=== PATIENT | female | born 1960 | race Caucasian/White ===

== ENCOUNTER 2020-03-08 22:37 | Inpatient (IN) ==
[2020-03-08] MEDS ORDERED: methylPREDNISolone SOD SUC 125 MG/2 ML VIAL IV STA (23:16)
[2020-03-08] MEDS ORDERED: SODIUM CHLORIDE 0.9% 1,000 ML IV STA (23:16)
[2020-03-08 23:36] LABS: Basophils # 0.1 10*3/uL (0.0-0.2); Basophils % 0.4 % (0.0-0.8); Eosinophils # 0.4 10*3/uL (0.0-0.87); Eosinophils % 2.4 % (0.00-10.9); Hematocrit 42.7 VOL% (35.7-47.0); Hemoglobin 13.8 GM/DL (12.0-16.0); Immature Granulocytes % 0.4 %; Immature Granulocytes Absolute 0.06 #; Lymphocytes # 1.4 10*3/uL (1.4-4.0); Mean Corpuscular HGB Conc 32.3 GM/DL (32-36); Mean Corpuscular Volume 99.3 FL (87-102); Mean Platelet Volume 11.1 FL (9.6-12.0); Monocytes % 6.7 % (1.7-12.7); Neutrophils % 81.1 % (38.7-73.9); Platelet Count 293 T/CUMM (130-400); Red Cell Distribution Width 11.8 % (9.3-17.3); White Blood Count 15.3 T/CUMM (4-12)
[2020-03-08 23:42] LABS: Albumin 3.9 G/DL (3.4-5.0); Bilirubin,Total 0.4 MG/DL (0.2-1.0); Calcium 9.2 MG/DL (8.5-10.1); Osmolality,Calculated 270.1 MOS/KG (273-304); Total Protein 7.7 G/DL (6.4-8.3)
[2020-03-08] MEDS ORDERED: AZITHROMYCIN INJ 500 MG in SODIUM CHLORIDE 0.9% 250 ML IV STA (23:57)
[2020-03-09] MEDS ORDERED: ASPIRIN EC 325 MG TABLET PO STA (00:09)
[2020-03-09 00:20] LABS: Ferritin 131.9 ng/ml (8-252)
[2020-03-09] MEDS ORDERED: ONDANSETRON 4 MG/2 ML VIAL IV PRN (00:35)
[2020-03-09] MEDS: SODIUM CHLORIDE 0.9% 1,000 ML IV SCH ×3 (02:10→18:47)
[2020-03-09 03:14] LABS: Basophils % 0.3 % (0.0-0.8); Eosinophils # 0.1 10*3/uL (0.0-0.87); Eosinophils % 0.5 % (0.00-10.9); Hematocrit 41.1 VOL% (35.7-47.0); Hemoglobin 13.7 GM/DL (12.0-16.0); Immature Granulocytes % 0.4 %; Immature Granulocytes Absolute 0.04 #; Lymphocytes # 0.4 10*3/uL (1.4-4.0); Lymphocytes % 3.7 % (21.3-54.2); Mean Corpuscular HGB Conc 33.3 GM/DL (32-36); Mean Corpuscular Volume 95.8 FL (87-102); Mean Platelet Volume 11.1 FL (9.6-12.0); Neutrophils % 94.1 % (38.7-73.9); Platelet Count 273 T/CUMM (130-400); Red Blood Count 4.29 MC/CUMM (3.8-5.5); Red Cell Distribution Width 11.9 % (9.3-17.3); White Blood Count 11.4 T/CUMM (4-12)
[2020-03-09 03:43] LABS: Alanine Aminotransferase 26 U/L (13-56); Albumin 3.9 G/DL (3.4-5.0); Alkaline Phosphatase 90 U/L (45-117); Aspartate Amino Transferase 24 U/L (0-37); Bilirubin,Total < 0.39 MG/DL (0.2-1.0); Blood Urea Nitrogen 9 MG/DL (7-18); Calcium 8.6 MG/DL (8.5-10.1); Estimated Glom Filtration Rate 76 ML/MIN; Glucose 128 MG/DL (74-106); Osmolality,Calculated 281.3 MOS/KG (273-304); Total Protein 7.3 G/DL (6.4-8.3)
[2020-03-09 04:03] LABS: Lymphocytes 4 % (20-55); Segmented Neutrophils 95 % (50-85); Total Cells Counted 100
[2020-03-09 04:04] LABS: Platelet Estimate Normal
[2020-03-09 04:05] LABS: Stomatocytes Slight
[2020-03-09] MEDS ORDERED: ACETAMINOPHEN 325 MG TABLET PO PRN (07:41)
[2020-03-09] MEDS ORDERED: NITROGLYCERIN SL 0.4 MG TABLET SL PRN (07:41)
[2020-03-09] MEDS ORDERED: methylPREDNISolone SOD SUC 40 MG/1 ML VIAL IV SCH (08:00)
[2020-03-09] MEDS: ENOXAPARIN 60 MG/0.6 ML SYRINGE SUBCUT SCH ×2 (08:47→21:30)
[2020-03-09] MEDS: PANTOPRAZOLE 40 MG TABLET PO SCH (08:48)
[2020-03-09] MEDS: ASPIRIN EC 81 MG TABLET PO SCH (08:48)
[2020-03-09] MEDS ORDERED: ALBUTEROL/IPRATROPIUM 3 ML NEB RESP TX PRN (08:52)
[2020-03-09] MEDS ORDERED: ALBUTEROL 2.5 MG/3 ML NEB RESP TX SCH (11:00)
[2020-03-09] MEDS ORDERED: ALBUTEROL INHALER 18 GM INH SCH (11:00)
[2020-03-09] MEDS ORDERED: MORPHINE 4 MG/1 ML VIAL IV PRN (11:17)
[2020-03-09] MEDS ORDERED: ALBUTEROL/IPRATROPIUM 3 ML NEB RESP TX SCH ×2 (15:00→19:00)
[2020-03-09] MEDS: ALBUTEROL INHALER 18 GM INH SCH ×2 (15:18→19:00)
[2020-03-09] MEDS: cefTRIAXone 1,000 MG in SYRINGE 1 EACH IV SCH (15:18)
[2020-03-09] MEDS: methylPREDNISolone SOD SUC 40 MG/1 ML VIAL IV SCH (17:05)
[2020-03-09 19:26] LABS: Apearance,Urine CLEAR (Clear); Bilirubin,Urine Negative (Negative); Blood, Urine Negative (Negative); Glucose,Urine (UA) 50 mg/dL (Negative); Ketones,Urine Negative (Negative); Mucus,Urine Occasional /LPF (Occasional); Nitrite,Urine Negative (Negative); Protein,Urine Negative; RBC,Urine <1 /HPF (0-4); Urine Color Yellow (Yellow); Urine Specific Gravity 1.015 (1.001-1.035); Urine Urobilinogen < 2.0 EU/DL (0.2-1.0); WBC,Urine <1 /HPF (0-6)
[2020-03-09] MEDS: ATORVASTATIN 20 MG TABLET PO SCH (21:30)
[2020-03-10] MEDS ORDERED: AZITHROMYCIN INJ 500 MG in SODIUM CHLORIDE 0.9% 250 ML IV SCH
[2020-03-10] MEDS: methylPREDNISolone SOD SUC 40 MG/1 ML VIAL IV SCH ×3 (00:50→16:52)
[2020-03-10] MEDS: ALBUTEROL INHALER 18 GM INH SCH ×4 (01:15→21:54)
[2020-03-10] MEDS: SODIUM CHLORIDE 0.9% 1,000 ML IV SCH ×3 (03:25→23:23)
[2020-03-10 05:59] LABS: Basophils % 0.1 % (0.0-0.8); Hematocrit 35.5 VOL% (35.7-47.0); Hemoglobin 11.8 GM/DL (12.0-16.0); Immature Granulocytes % 0.5 %; Immature Granulocytes Absolute 0.05 #; Lymphocytes # 0.7 10*3/uL (1.4-4.0); Lymphocytes % 6.8 % (21.3-54.2); Mean Corpuscular HGB Conc 33.2 GM/DL (32-36); Mean Corpuscular Volume 96.5 FL (87-102); Mean Platelet Volume 11.2 FL (9.6-12.0); Monocytes % 3.7 % (1.7-12.7); Neutrophils % 88.9 % (38.7-73.9); Platelet Count 257 T/CUMM (130-400); Red Blood Count 3.68 MC/CUMM (3.8-5.5); Red Cell Distribution Width 11.8 % (9.3-17.3); White Blood Count 10.8 T/CUMM (4-12)
[2020-03-10 06:31] LABS: Alanine Aminotransferase 22 U/L (13-56); Alkaline Phosphatase 69 U/L (45-117); Aspartate Amino Transferase 20 U/L (0-37); Bilirubin,Total < 0.39 MG/DL (0.2-1.0); Blood Urea Nitrogen 9 MG/DL (7-18); Calcium 8.7 MG/DL (8.5-10.1); Estimated Glom Filtration Rate 94 ML/MIN; Glucose 127 MG/DL (74-106); HDL Cholesterol 80 MG/DL (40-60); Osmolality,Calculated 275.7 MOS/KG (273-304); Risk Ratio 2.14; Total Protein 6.3 G/DL (6.4-8.3); Triglycerides 91 MG/DL (2-150); VLDL CHOLESTEROL 18.2 MG/DL
[2020-03-10] MEDS: AZITHROMYCIN 250 MG TABLET PO SCH (09:01)
[2020-03-10] MEDS: PANTOPRAZOLE 40 MG TABLET PO SCH (09:01)
[2020-03-10] MEDS: ENOXAPARIN 60 MG/0.6 ML SYRINGE SUBCUT SCH ×2 (09:01→21:54)
[2020-03-10] MEDS: ASPIRIN EC 81 MG TABLET PO SCH (09:03)
[2020-03-10] MEDS: cefTRIAXone 1,000 MG in SYRINGE 1 EACH IV SCH (13:17)
[2020-03-10] MEDS ORDERED: CLORAZEPATE 7.5 MG TABLET PO ONE (16:14)
[2020-03-10] MEDS: ATORVASTATIN 20 MG TABLET PO SCH (21:54)
[2020-03-11] MEDS: methylPREDNISolone SOD SUC 40 MG/1 ML VIAL IV SCH ×3 (00:18→15:43)
[2020-03-11] MEDS: ALBUTEROL INHALER 18 GM INH SCH ×4 (01:40→18:00)
[2020-03-11] MEDS: SODIUM CHLORIDE 0.9% 1,000 ML IV SCH ×3 (02:20→22:02)
[2020-03-11 06:06] LABS: Basophils % 0.1 % (0.0-0.8); Hematocrit 35.2 VOL% (35.7-47.0); Hemoglobin 11.3 GM/DL (12.0-16.0); Immature Granulocytes % 0.5 %; Immature Granulocytes Absolute 0.05 #; Lymphocytes # 1.5 10*3/uL (1.4-4.0); Lymphocytes % 15.6 % (21.3-54.2); Mean Corpuscular HGB Conc 32.1 GM/DL (32-36); Mean Corpuscular Volume 99.4 FL (87-102); Mean Platelet Volume 11.6 FL (9.6-12.0); Monocytes % 5.7 % (1.7-12.7); Neutrophils % 78.1 % (38.7-73.9); Platelet Count 260 T/CUMM (130-400); Red Blood Count 3.54 MC/CUMM (3.8-5.5); Red Cell Distribution Width 11.8 % (9.3-17.3); White Blood Count 9.8 T/CUMM (4-12)
[2020-03-11] MEDS: PANTOPRAZOLE 40 MG TABLET PO SCH (08:16)
[2020-03-11] MEDS: AZITHROMYCIN 250 MG TABLET PO SCH (08:16)
[2020-03-11] MEDS: ENOXAPARIN 60 MG/0.6 ML SYRINGE SUBCUT SCH ×2 (08:16→21:35)
[2020-03-11] MEDS: ASPIRIN EC 81 MG TABLET PO SCH (08:18)
[2020-03-11] MEDS: cefTRIAXone 1,000 MG in SYRINGE 1 EACH IV SCH (11:03)
[2020-03-11] MEDS: CLORAZEPATE 7.5 MG TABLET PO PRN (16:33)
[2020-03-11] MEDS: ATORVASTATIN 20 MG TABLET PO SCH (21:40)
[2020-03-12] MEDS: methylPREDNISolone SOD SUC 40 MG/1 ML VIAL IV SCH ×4 (00:12→23:57)
[2020-03-12] MEDS: SODIUM CHLORIDE 0.9% 1,000 ML IV SCH ×3 (01:13→16:59)
[2020-03-12] MEDS: ALBUTEROL INHALER 18 GM INH SCH ×3 (01:13→14:14)
[2020-03-12] MEDS: AZITHROMYCIN 250 MG TABLET PO SCH (09:01)
[2020-03-12] MEDS: ENOXAPARIN 60 MG/0.6 ML SYRINGE SUBCUT SCH ×2 (09:01→21:01)
[2020-03-12] MEDS: ASPIRIN EC 81 MG TABLET PO SCH (09:01)
[2020-03-12] MEDS: PANTOPRAZOLE 40 MG TABLET PO SCH (09:01)
[2020-03-12] MEDS: cefTRIAXone 1,000 MG in SYRINGE 1 EACH IV SCH (12:04)
[2020-03-12] MEDS: ATORVASTATIN 20 MG TABLET PO SCH (21:01)
[2020-03-12] MEDS: TEMAZEPAM 7.5 MG CAPSULE PO SCH (21:01)
[2020-03-13] MEDS: SODIUM CHLORIDE 0.9% 1,000 ML IV SCH ×2 (04:36→12:36)
[2020-03-13 06:13] LABS: Eosinophils % 0.2 % (0.00-10.9); Hematocrit 34.1 VOL% (35.7-47.0); Hemoglobin 11.1 GM/DL (12.0-16.0); Immature Granulocytes % 0.5 %; Immature Granulocytes Absolute 0.03 #; Lymphocytes # 1.3 10*3/uL (1.4-4.0); Lymphocytes % 21.4 % (21.3-54.2); Mean Corpuscular HGB Conc 32.6 GM/DL (32-36); Mean Corpuscular Volume 97.4 FL (87-102); Mean Platelet Volume 11.4 FL (9.6-12.0); Monocytes % 3.9 % (1.7-12.7); Platelet Count 254 T/CUMM (130-400); Red Cell Distribution Width 11.7 % (9.3-17.3)
[2020-03-13] MEDS: ALBUTEROL INHALER 18 GM INH SCH ×4 (06:26→19:27)
[2020-03-13 06:31] LABS: Calcium 8.5 MG/DL (8.5-10.1); Osmolality,Calculated 277.4 MOS/KG (273-304)
[2020-03-13] MEDS ORDERED: DIAZEPAM 5 MG TABLET PO ONE (07:44)
[2020-03-13] MEDS ORDERED: diphenhydrAMINE CAP 25 MG CAPSULE PO ONE (07:44)
[2020-03-13] MEDS ORDERED: MAGNESIUM SULF RIDER 2 GM in PREMIX 1 EACH IV PRN (07:44)
[2020-03-13] MEDS ORDERED: POTASSIUM CHLORIDE RIDER 10 MEQ in PREMIX 1 EACH IV PRN (07:44)
[2020-03-13] MEDS: PANTOPRAZOLE 40 MG TABLET PO SCH (08:25)
[2020-03-13] MEDS: AZITHROMYCIN 250 MG TABLET PO SCH (08:25)
[2020-03-13] MEDS: methylPREDNISolone SOD SUC 40 MG/1 ML VIAL IV SCH ×2 (08:27→17:57)
[2020-03-13] MEDS: ASPIRIN EC 81 MG TABLET PO SCH (09:41)
[2020-03-13] MEDS: ENOXAPARIN 60 MG/0.6 ML SYRINGE SUBCUT SCH (09:41)
[2020-03-13] MEDS: cefTRIAXone 1,000 MG in SYRINGE 1 EACH IV SCH (12:35)
[2020-03-13] MEDS ORDERED: HEPARIN/NACL 0.9% 2 UNITS/ML 1,000 ML IV ONE (12:47)
[2020-03-13] MEDS ORDERED: LIDOCAINE 1%/EPI INJ 20 ML VIAL ONE (12:47)
[2020-03-13] MEDS ORDERED: fentaNYL 100 MCG/2 ML VIAL ONE (13:15)
[2020-03-13] MEDS ORDERED: MIDAZOLAM 2 MG/2 ML VIAL ONE (13:19)
[2020-03-13] MEDS: ATORVASTATIN 20 MG TABLET PO SCH (21:49)
[2020-03-13] MEDS: TICAGRELOR 90 MG TABLET PO SCH (21:49)
[2020-03-13] MEDS: TEMAZEPAM 7.5 MG CAPSULE PO SCH (21:49)
[2020-03-14] MEDS: methylPREDNISolone SOD SUC 40 MG/1 ML VIAL IV SCH (00:33)
[2020-03-14] MEDS: ALBUTEROL INHALER 18 GM INH SCH ×2 (02:10→07:00)
[2020-03-14] MEDS: CLORAZEPATE 7.5 MG TABLET PO PRN (05:10)
[2020-03-14] MEDS ORDERED: methylPREDNISolone SOD SUC 40 MG/1 ML VIAL IV SCH (06:30)
[2020-03-14 07:23] LABS: Hemoglobin 12.4 GM/DL (12.0-16.0); Immature Granulocytes % 0.7 %; Immature Granulocytes Absolute 0.06 #; Lymphocytes # 1.1 10*3/uL (1.4-4.0); Lymphocytes % 13.5 % (21.3-54.2); Mean Corpuscular HGB Conc 33.5 GM/DL (32-36); Mean Corpuscular Volume 94.9 FL (87-102); Mean Platelet Volume 11.4 FL (9.6-12.0); Monocytes % 3.8 % (1.7-12.7); Platelet Count 277 T/CUMM (130-400); Red Cell Distribution Width 11.4 % (9.3-17.3); White Blood Count 8.4 T/CUMM (4-12)
[2020-03-14 07:39] LABS: Calcium 8.7 MG/DL (8.5-10.1); Osmolality,Calculated 280.3 MOS/KG (273-304)
[2020-03-14] MEDS: TICAGRELOR 90 MG TABLET PO SCH (08:51)
[2020-03-14] MEDS: PANTOPRAZOLE 40 MG TABLET PO SCH (08:51)
[2020-03-14] MEDS: ASPIRIN EC 81 MG TABLET PO SCH (08:51)
[2020-03-14] MEDS: AZITHROMYCIN 250 MG TABLET PO SCH (08:51)
[2020-03-14] MEDS: cefTRIAXone 1,000 MG in SYRINGE 1 EACH IV SCH (11:16)
[2020-03-14 12:29] VITALS: BP 122/65
[2020-03-14] MEDS ORDERED: BUDESONIDE/FORMOTEROL 160-4.5 INHALER 6 GM INH SCH (21:00)
== END 2020-03-14 12:27 | disposition home or self-care (01) | DRG 191 ==
LOC: EDUNIT# → EDBD → N.ED 22:37 → N.EDINP 03-09 00:34 → N.ICU 03-09 02:26 → N.2E 03-09 11:28 → N.3E 03-12 17:53
PROVIDERS: ADMIT Family Medicine; ATTEND Family Medicine
PROC: CLCCHCL (ICD-10-PCS; 2020-03-13 13:45)